=== PATIENT | female | born 1995 | race Caucasian/White ===

== ENCOUNTER 2017-08-14 02:40 | Emergency (ER) | payer OTHER ==
[~2017-08-14] VITALS: Ht 165.1 cm; Wt 69.5 kg
[2017-08-14 02:53] VITALS: Ht 165.1 cm; Wt 69.5 kg
[2017-08-14] MEDS ORDERED: KETOROLAC TROMETHAMINE 15 MG/ML VIAL IV STA (03:18)
--- NOTE | 2017-08-14 03:39 | EMERGENCY ROOM VISIT NOTE ---
History First contact with patient: 02:55 Chief Complaint: BACK PAIN Stated Complaint: SEVERE LWR BACK THROBBING PAIN History of Present Illness The patient is a 21 year old female who presents to the Emergency Room with complaints of pelvic/low back pain. The patient reports that approximately 1.5 hours ago, she woke up with a pain felt like menstrual cramps or gas pains. She states the pain is in her low back and pelvic region. The pain has gradually increased over that time. It is a constant, throbbing pain which is worse when she is sitting upright. She states that she sat in a bath of hot water which made her pain slightly better. She took one ibuprofen and 2 relief with slight improvement. She denies any history of [employer] issues. Her last menstrual period was 2 weeks ago and she is on control pills. She denies nausea/vomiting, vaginal discharge or urinary symptoms. Her last bowel movement was yesterday morning and she states this was slightly looser than normal. She rates her pain an 8/10. Review of Systems A complete 10 point review of systems was reviewed with the patient with pertinent positives and negatives as per history of present illness. All else were negative. Past Medical/Surgical History Medical Problems: (1) No significant active problems Surgical Problems: (1) No significant past surgical history Social History Smoking Status: Never Smoker Marital Status: single Housing Status: lives with roommate Occupation Status: [employer] Current/Historical Medications Scheduled Control Pills ( Control Pills), 1 TAB PO DAILY Physical Exam Vital Signs Date Time Temp Pulse Resp B/P (MAP) Pulse Ox O2 Delivery O2 Flow Rate FiO2 08/14/17 06:24 36.7 55 20 121/74 99 Room Air 08/14/17 04:25 59 20 120/76 99 Room Air 08/14/17 02:53 36.8 75 20 116/64 97 Room Air Physical Exam VITALS: Vitals are noted on the nurse's note and reviewed by myself. Vital signs stable. GENERAL: This is a 21-year-old female, in no acute distress, nondiaphoretic, well-developed well-nourished. SKIN: The skin was without rashes. EYES: Pupils equal round and reactive to light and accommodation. MOUTH: Mucous membranes moist. Tonsils are not enlarged. Pharynx without erythema or exudate. HEART: Regular rate and rhythm without murmurs gallops or rubs. LUNGS: Clear to auscultation bilaterally without wheezes, rales or rhonchi. ABDOMEN: Positive bowel sounds x 4. Soft, no tenderness to palpation. No guarding or rebound tenderness. MUSCULOSKELETAL: No lumbar tenderness to palpation. NEURO: Patient was alert and oriented to person place and time. Medical Decision & Procedures ER Provider Diagnostic Interpretation: US PELVIC/ENDOVAG: Uterus unremarkable. No endometrial thickening. Ovarian follicles. Blood flow seen to bilateral ovaries. Trace free fluid. Radiologist: Jorge Anderson M.D. Laboratory Results 08/14/17 03:38 Red Blood Count 4.58, Mean Corpuscular Volume 77.5, Mean Corpuscular Hemoglobin 25.8, Mean Corpuscular Hemoglobin Concent 33.2, Mean Platelet Volume 10.3, Neutrophils (%) (Auto) 69.1, Lymphocytes (%) (Auto) 20.0, Monocytes (%) (Auto) 8.2, Eosinophils (%) (Auto) 2.1, Basophils (%) (Auto) 0.4, Neutrophils # (Auto) 3.35, Lymphocytes # (Auto) 0.97, Monocytes # (Auto) 0.40, Eosinophils # (Auto) 0.10, Basophils # (Auto) 0.02 08/14/17 03:38 Test 08/14/17 03:38 08/14/17 03:39 08/14/17 05:07 White Blood Count 4.85 K/uL (4.8-10.8) Red Blood Count 4.58 M/uL (4.2-5.4) Hemoglobin 11.8 g/dL (12.0-16.0) Hematocrit 35.5 % (37-47) Mean Corpuscular Volume 77.5 fL (80-100) Mean Corpuscular Hemoglobin 25.8 pg (25-34) Mean Corpuscular Hemoglobin Concent 33.2 g/dl (32-36) Platelet Count 114 K/uL (130-400) Mean Platelet Volume 10.3 fL (7.4-10.4) Neutrophils (%) (Auto) 69.1 % Lymphocytes (%) (Auto) 20.0 % Monocytes (%) (Auto) 8.2 % Eosinophils (%) (Auto) 2.1 % Basophils (%) (Auto) 0.4 % Neutrophils # (Auto) 3.35 K/uL (1.4-6.5) Lymphocytes # (Auto) 0.97 K/uL (1.2-3.4) Monocytes # (Auto) 0.40 K/uL (0.11-0.59) Eosinophils # (Auto) 0.10 K/uL (0-0.5) Basophils # (Auto) 0.02 K/uL (0-0.2) RDW Standard Deviation 46.1 fL (36.4-46.3) RDW Coefficient of Variation 16.2 % (11.5-14.5) Immature Granulocyte % (Auto) 0.2 % Immature Granulocyte # (Auto) 0.01 K/uL (0.00-0.02) Anion Gap 11.0 mmol/L (3-11) Est Creatinine Clear Calc Drug Dose 108.9 ml/min Estimated GFR () 122.2 Estimated GFR (Non- 105.4 BUN/Creatinine Ratio 13.6 (10-20) Calcium Level 8.9 mg/dl (8.5-10.1) Total Bilirubin 0.7 mg/dl (0.2-1) Aspartate Amino Transf (AST/SGOT) 15 U/L (15-37) Alanine Aminotransferase (ALT/SGPT) 15 U/L (12-78) Alkaline Phosphatase 53 U/L (45-117) Total Protein 7.6 gm/dl (6.4-8.2) Albumin 4.0 gm/dl (3.4-5.0) Globulin 3.6 gm/dl (2.5-4.0) Albumin/Globulin Ratio 1.1 (0.9-2) Human Chorionic Gonadotropin, Qual NEG (NEG) Urine Color YELLOW Urine Appearance CLEAR (CLEAR) Urine pH 5.5 (4.5-7.5) Urine Specific [place] >= 1.030 (1.000-1.030) Urine Protein 1+ (NEG) Urine Glucose (UA) NEG (NEG) Urine Ketones 3+ (NEG) Urine Occult Blood 2+ (NEG) Urine Nitrite NEG (NEG) Urine Bilirubin NEG (NEG) Urine Urobilinogen NEG (NEG) Urine Leukocyte Esterase TRACE (NEG) Urine RBC 0-4 /hpf (0-4) Urine WBC 1-5 /hpf (0-5) Urine Epithelial Cells >30 /lpf (0-5) Urine Bacteria 1+ (NEG) Urine Test NEG (NEG) Date/Time Source Procedure Growth Status 08/14/17 05:07 Urine , Random Urine Culture - Final THREE TYPES OF ORGANISMS PRESENT, ALL... Complete Medications Administered Medications (Trade) Dose Ordered Sig/Debi Route Start Time Stop Time Status Last Admin Dose Admin Ketorolac Tromethamine (Toradol Inj) 15 mg NOW STAT IV 08/14/17 03:18 08/14/17 03:23 DC 08/14/17 03:35 15 MG ED Course The patient was evaluated as above. Labs were drawn and IV access was obtained. Patient was medicated with 15 mg Toradol IV. Patient was reevaluated and stated she was feeling better. Discharge instructions were reviewed with the patient. The patient verbalized understanding of my assessment and treatment plan and was discharged home in good condition. Medical Decision Differential diagnosis includes ovarian cyst, ovarian torsion, ectopic , UTI, constipation, gastroenteritis, among others. The patient is a 21-year-old female who presents today complaining of pelvic and low back pain. Labs revealed no leukocytosis. Patient has a mild anemia Urinalysis was not overtly suggestive of infection and will be sent for culture. Urine was negative. Pelvic ultrasound was obtained and was unremarkable except for a small amount of free fluid. Patient felt better after treatment with Toradol. Symptoms may be secondary to a small ruptured ovarian cyst or possibly musculoskeletal pain. Patient was comfortable with discharge home and close follow-up with her primary care provider. She will return for worsening or new/concerning symptoms. Based on the patient's presentation and work up, I feel the patient is stable for outpatient treatment. The patient was educated to return to the emergency department for any worsening of their current condition or new/concerning symptoms. She will follow up with [facility]. Medication Reconcilliation Current Medication List: was personally reviewed by me Blood Pressure Screening Patient's blood pressure: Normal blood pressure Impression Primary Impression: Pelvic pain Departure Information Dispostion Home / Self-Care Condition GOOD Referrals [facility] (PCP) Patient Instructions My [facility] Additional Instructions You have been treated in the Emergency Department for your Pelvic/back pain. Laboratory results and imaging studies have ruled out any emergent causes for your abdominal pain which would warrant admission or surgery. For pain control, you can use the following [id number] medicines (if >12 yo): - Regular strength (325mg/tab) Tylenol (acetaminophen) 2 tabs every 4-6 hours as needed. Do not exceed 12 tablets in a 24 hour period. Avoid taking more than 4 grams (4000 mg) of Tylenol per day. This includes any other sources of acetaminophen you may take on a regular basis. - Regular strength (200 mg/tab) Advil (ibuprofen) 3-4 tabs every 6 hours as needed. Do not exceed a dose of 3200 mg per day. Drink plenty of water and stay well hydrated. Follow-up with [facility] this week for a recheck. Return to the emergency department if your symptoms persist despite treatment plan outlined above or if the following symptoms occur: Worsening pain, vomiting , fever or other new/concerning symptoms
[2017-08-14 03:48] LABS: BASO % 0.4 %; BASO ABS # 0.02 K/uL (0-0.2); EOS % 2.1 %; HEMATOCRIT 35.5 % (37-47); HEMOGLOBIN 11.8 g/dL (12.0-16.0); IG# 0.01 K/uL (0.00-0.02); LYMPH ABS # 0.97 K/uL (1.2-3.4); MEAN CELL VOLUME 77.5 fL (80-100); MEAN CORPUSCULAR HEMOGLOBIN 25.8 pg (25-34); MEAN CORPUSCULAR HGB CONC 33.2 g/dl (32-36); MEAN PLATELET VOLUME 10.3 fL (7.4-10.4); MONO % 8.2 %; NEUT % 69.1 %; NEUT ABS # 3.35 K/uL (1.4-6.5); PLATELET COUNT 114 K/uL (130-400); RED CELL DISTRIBUTION WIDTH CV 16.2 % (11.5-14.5); RED CELL DISTRIBUTION WIDTH SD 46.1 fL (36.4-46.3); WHITE BLOOD COUNT 4.85 K/uL (4.8-10.8)
[2017-08-14] MEDS ORDERED: BCPILLS PO (04:04)
[2017-08-14 04:10] LABS: CALCIUM 8.9 mg/dl (8.5-10.1); CREATININE 0.8 mg/dl (0.60-1.20); POTASSIUM 3.1 mmol/L (3.5-5.1)
[2017-08-14 04:13] LABS: TOTAL PROTEIN 7.6 gm/dl (6.4-8.2)
[2017-08-14 06:24] VITALS: BP 121/74; PULSE 55; TEMP 36.7; O2SAT 99
--- NOTE | 2017-08-14 06:43 | DIAGNOSTIC IMAGING REPORT ---
PELVIC COMPLETE NON OB CLINICAL HISTORY: pelvic pain, sudden onset PELVIC PAIN COMPARISON STUDY: None FINDINGS: The uterus measured A 0.4 cm.. The endometrial stripe measured 3 mm. The right ovary measured 3.8 cm with normal vascular flow several small subcentimeter follicular cysts. The left ovary measured 3.3 cm with normal vascular flow. Several small subcentimeter follicular cysts. There is no ultrasonographic evidence of ovarian torsion. It should be noted that ovarian torsion can be present with normal Doppler ultrasonographic findings. There was no evidence of pathologic free pelvic fluid. IMPRESSION: Normal pelvic ultrasound. The above report was generated using voice recognition software. It may contain grammatical, syntax or spelling errors. Electronically signed by: Greg Heath M.D. 08/14/2017 6:42 AM Dictated Date/Time: 08/14/2017 6:40 AM
== END 2017-08-14 06:25 | disposition home or self-care (01) ==
LOC: C.EDB 02:41
DX: R10.2 Pelvic and perineal pain (principal); M54.5 Low back pain; D64.9 Anemia, unspecified; Z79.3 Long term (current) use of hormonal contraceptives